=== PATIENT | male | born 1985 | race Caucasian/White ===

== ENCOUNTER → 2020-09-21 15:20 | Outpatient (CLI) | payer BC, SELFPAY ==
[2020-09-21 18:31] LABS: Anion Gap 8 (5-15); BUN 12 mg/dL (7-18); Chloride 105 mmol/L (98-107); Cholesterol 186 mg/dL (200); Creatinine, Serum 0.92 mg/dL (0.70-1.30); EST Glomerular Filtration Rate 99 mL/min (>60); Est Glom Filt Rate - Afr Amer 120 mL/min (>60); Glucose 86 mg/dL (74-106); High Density Lipoprotein 39 mg/dL; Potassium 3.7 mmol/L (3.5-5.1); Sodium Level 139 mmol/L (136-145); Triglycerides 179 mg/dL; Very Low Density Lipoprotein 36 mg/dL (5-40)
== END ==
PROVIDERS: PCP Family Medicine; Referring Provider Family Medicine; Visit Provider Family Medicine
DX: Z00.00 Encounter for general adult medical examination without abnormal findings (principal)
CPT/HCPCS: 36415; 80048; 80061

== ENCOUNTER → 2021-07-20 13:53 | Outpatient (CLI) | payer BC, SELFPAY ==
--- NOTE | 2021-07-20 13:56 | RAD_ITS ---
STUDY: X-RAY STERNUM REASON FOR EXAM: Male, 35 years old. discomfort near xiphoid tip when lying on stomach, no injury CHEST WALL PAIN TECHNIQUE: 4 view(s) of the sternum were obtained. COMPARISON: None. FINDINGS: Normal bilateral sternoclavicular articulations. Normal manubrium. Normal sternomanubrial joint. Normal sternal body and xiphoid process. There is no demonstrated fracture of the sternum. Normal visualized anterior ribs. Normal visualized lungs. The soft tissue structures are unremarkable. RAD/Sternum min 2 Views IMPRESSION: Normal x-ray examination of the sternum. Electronically Signed: Omero Rosales MD at 18:58 EST , Service support ,
== END ==
PROVIDERS: PCP Family Medicine; Referring Provider Family Medicine; Visit Provider Family Medicine
DX: R07.89 Other chest pain (principal)
CPT/HCPCS: 71120

== ENCOUNTER → 2024-03-18 | Outpatient (CLI) | payer MEDICAID, SELFPAY ==
[2024-03-18 12:33] LABS: Absolute Lymphocyte Count 2.51 X10^3/uL (0.83-4.51); Absolute Neutrophil Count 3.9 X10^3/uL (2.0-7.7); Basophil# 0.04 X10^3/uL; Basophil% 0.6 % (0-1); Eosinophil# 0.09 X10^3/uL; Eosinophils% 1.3 % (0-5); Hematocrit 46.9 % (40-54); Hemoglobin 15.6 g/dL (13.0-16.5); Lymphocyte # 2.51 X10^3/ul (0.83-4.51); Lymphocyte % 35.1 % (19-41); Mean Corp Hgb Conc 33.3 g/dL (32-36); Mean Corpuscular Hgb 29.8 pg (27.0-32.0); Mean Corpuscular Volume 89.5 fL (80-94); Monocyte% 8.4 % (0-10); NRBC Flagged by Analyzer 0 % (0-5); Neutrophil % 54.3 % (47-70); Platelet Count 279 K/mm3 (150-450); RBC Distribution Width SD 39.5 fl (35.1-43.9); Red Blood Count 5.24 M/mm3 (4.6-6.2); White Blood Count 7.2 K/mm3 (4.4-11.0)
[2024-03-18 13:09] LABS: AST(SGOT) 25 U/L (15-37); Alanine Aminotransfer ALT/SGPT 41 U/L (16-61); Albumin, Serum 3.6 g/dL (3.2-5.0); Alkaline Phosphatase 74 U/L (45-117); Anion Gap 5 (5-15); BUN 15 mg/dL (7-18); BUN/Creat Ratio 16.5 RATIO (10-20); Calcium,Total 8.6 mg/dL (8.5-10.1); Chloride 108 mmol/L (98-107); Cholesterol 169 mg/dL (200); Creatinine, Serum 0.91 mg/dL (0.70-1.30); EST Glomerular Filtration Rate 99 mL/min (>60); Est Glom Filt Rate - Afr Amer 120 mL/min (>60); Globulin 3.5 g/dL (2.2-4.2); Glucose 92 mg/dL (74-106); High Density Lipoprotein 31 mg/dL; Protein, Total 7.1 g/dL (6.4-8.2); Sodium Level 140 mmol/L (136-145); Triglycerides 125 mg/dL; Very Low Density Lipoprotein 25 mg/dL (5-40)
== END | disposition home or self-care (01) ==
LOC: BIMLAB 08:57
PROVIDERS: PCP Internal Medicine; Referring Provider Internal Medicine; Visit Provider Internal Medicine
DX: Z00.00 Encounter for general adult medical examination without abnormal findings (principal)
CPT/HCPCS: 36415; 80053; 80061; 85025

== ENCOUNTER → 2024-03-22 | Outpatient (CLI) | payer MEDICAID, SELFPAY ==
--- NOTE | 2024-03-22 | VAS_PTH ---
PATIENT: NOMI JAMES LOC: [facility] U#:[id number] AGE/SX: 38/M ROOM: RE03/22/[address]: Dr. Erik Martinez MD : 1985 BED: DIS: 03/22/2024 SPEC #: [id number] RECD: 03/22/24 16:40 STATUS: BETTY JALEN #: [id number] AIDE: 03/22/24 00:[address]: Erik Martinez DEPT: SURGICAL PATHOLOGY RECD BY: Carlos Hernandez ENTERED: 03/25/24 08:44 SP TYPE: VAS OTHR DR: Dr. Carline Olivo MD Tissues: A - Vas deferens, NOS B - Vas deferens, NOS Procedures: Surgery Specimen Level II HEADER OPERATION: Bilateral partial vasectomy PRE-OP DIAGNOSIS: Sterilization TISSUE SUBMITTED: A- Right vas deferens, B- Left vas deferens MICROSCOPIC DIAGNOSIS A. Right vas deferens, partial vasectomy: Completely transected segment of vas deferens, no pathologic diagnosis. B. Left vas deferens, partial vasectomy: Completely transected segment of vas deferens, no pathologic diagnosis. BRISSA: 03/26/2024 MICROSCOPIC DESCRIPTION Slides are reviewed. GROSS DESCRIPTION A - Received is one container designated Right vas deferens. The specimen consists of a tubular segment of sandhu soft tissue measuring 0.8 cm in length and 0.2 cm in diameter. The specimen is sectioned and submitted entirely in one cassette. B - Received is one container designated Left vas deferens. The specimen consists of a tubular segment of sandhu soft tissue measuring 0.8 cm in length and 0.3 cm in diameter. The specimen is sectioned and submitted entirely in one cassette. / SJ: 03/25/2024 TC:4 CPT: 75970 x2
== END | disposition home or self-care (01) ==
LOC: LABSPEC 16:41
PROVIDERS: PCP Internal Medicine; Referring Provider Surgery; Visit Provider Surgery
DX: Z30.2 Encounter for sterilization (principal)
CPT/HCPCS: 88302

== ENCOUNTER → 2024-04-19 | Outpatient (CLI) | payer MEDICAID, SELFPAY ==
--- NOTE | 2024-04-19 12:30 | CYSPIN_PTH ---
PATIENT: NOMI JAMES LOC: [facility] U#:[id number] AGE/SX: 38/M ROOM: RE04/19/[address]: Dr. Erik Martinez MD : 1985 BED: DIS: 04/19/2024 SPEC #: [id number] RECD: 04/22/24 09:26 STATUS: BETTY JALEN #: [id number] AIDE: 04/19/24 12:[address]: Erik Martinez DEPT: CYTOLOGY RECD BY: Natalia Cantu ENTERED: 04/22/24 09:26 SP TYPE: CYSPIN FL OTHR DR: Dr. Carline Olivo MD Tissues: Cytologic material, NOS Procedures: Pap Stain (control) Special Stain Group II Cytospin Fluid HEADER OPERATION: Post vasectomy PRE-OP DIAGNOSIS: Post vasectomy status TISSUE SUBMITTED: Seminal fluid DIAGNOSIS CYTOLOGY Seminal fluid for cytology (cytospin ): Abundant spermatozoa present. AM/mr 04/22/2024 CYTOLOGY STUDY Slides are reviewed. CYTOLOGY GROSS Received is <1 ml of opaque fluid labeled with the patient's name and and designated per the requisition as Seminal fluid. Submitted for cytology preparation including cell block. Mr 04/22/2024 TC:5 CPT: 28653
[2024-04-19 13:04] LABS: Cytology, Semen SEE PATHOLOGY REPORT
== END | disposition home or self-care (01) ==
LOC: LABSPEC 13:02
PROVIDERS: Physician Assistant; PCP Internal Medicine; Referring Provider Surgery; Visit Provider Surgery
DX: Z98.52 Vasectomy status (principal)
CPT/HCPCS: 88108; 88313

== ENCOUNTER → 2025-03-13 | Outpatient (CLI) | payer MEDICAID, SELFPAY ==
[2025-03-13 16:00] LABS: Hematocrit 45.2 % (40-54); Hemoglobin 15.2 g/dL (13.0-16.5); Immature Granulocytes Count 0.020 X10^3/uL (0.0-0.0); Mean Corp Hgb Conc 33.6 g/dL (32-36); Mean Corpuscular Volume 90.8 fL (80-94); Mean Platelet Vol. 9.7 fl (6.2-12.0); NRBC Flagged by Analyzer 0 % (0-5); Platelet Count 280 K/mm3 (150-450); RBC Distribution Width CV 12.2 % (11.6-14.6); RBC Distribution Width SD 40.2 fl (35.1-43.9); Red Blood Count 4.98 M/mm3 (4.6-6.2); White Blood Count 8.7 K/mm3 (4.4-11.0)
[2025-03-13 16:48] LABS: AST(SGOT) 32 U/L (<=37); Alanine Aminotransfer ALT/SGPT 31 U/L (<=46); Albumin, Serum 4.5 g/dL (3.5-5.0); Alkaline Phosphatase 84 U/L (40-129); Anion Gap 12 (5-15); BUN 16 mg/dL (4-19); BUN/Creat Ratio 18.8 RATIO (10-20); Calcium,Total 9.3 mg/dL (7.6-11.0); Carbon Dioxide 24.4 mmol/L (21.0-32.0); Chloride 104 mmol/L (98-108); Globulin 2.9 g/dL (2.2-4.2); Glucose 77 mg/dL (70-99); Potassium 3.7 mmol/L (3.3-5.1)
[2025-03-13 17:40] LABS: Cholesterol 192 mg/dL (<=200); Low Density Lipoprotein Calc. 138 mg/dL; Triglycerides 70 mg/dL; Very Low Density Lipoprotein 14 mg/dL (5-40); cholesterol:hdl ratio screen 4.86
== END | disposition home or self-care (01) ==
LOC: LAB 14:49
PROVIDERS: PCP Internal Medicine; Referring Provider Internal Medicine; Visit Provider Internal Medicine
DX: Z00.00 Encounter for general adult medical examination without abnormal findings (principal); Z13.6 Encounter for screening for cardiovascular disorders
CPT/HCPCS: 36415; 80053; 80061; 85025